=== PATIENT | female | born 1945 | race African-American/Black ===

== ENCOUNTER 2018-09-13 16:43 | Emergency (ER) | payer BC ==
[~2018-09-13] VITALS: Ht 170.2 cm; Wt 86.0 kg
[2018-09-13] MEDS ORDERED: KETOROLAC 60MG/2ML VIAL IM ONE (18:00)
[2018-09-13] MEDS ORDERED: ACETAMINOPHEN WITH CODEINE 300/30MG TABLET PO STA (21:53)
[2018-09-13 21:58] VITALS: BP 144/70
== END 2018-09-13 21:47 | disposition home or self-care (01) ==
LOC: ER 16:43
DX: M25.552 Pain in left hip (principal); M54.5 Low back pain; M19.90 Unspecified osteoarthritis, unspecified site
CPT/HCPCS: 72100; 73502; 96372; 99283; J1885

== ENCOUNTER 2018-11-03 12:25 | Inpatient (IN) | payer BC ==
[~2018-11-03] VITALS: Ht 167.6 cm; Wt 86.6 kg
[2018-11-03 14:00] LABS: HEMATOCRIT. 32.4 % (36.0-48.0); HEMOGLOBIN. 10.9 g/dL (12.0-16.0); MEAN CORPUSCULAR HEMOGLOBIN 28.3 pg (28.0-32.0); MEAN CORPUSCULAR VOLUME 83.9 fL (81.0-99.0); MEAN PLATELET VOLUME 8.9 fl (7.4-10.4); PLATELET 371 x1000/uL (130-400); RED BLOOD CELL COUNT 3.86 mill/uL (4.2-5.4); RED CELL DISTRIBUTION WIDTH 17.2 % (11.6-14.6)
[2018-11-03 14:04] LABS: CHLORIDE 99 mEq/L (98-107)
[2018-11-03 14:07] LABS: INR 1.2; PARTIAL THROMBOPLASTIN TIME 31.3 sec (23.4-31.0); PROTHROMBIN TIME 11.6 sec (9.1-11.1)
[2018-11-03] MEDS ORDERED: KCL 20MEQ/100ML PREMIX 100 ML IV ONE (14:30)
[2018-11-03 15:21] LABS: PLATELET ESTIMATE NORMAL
[2018-11-03] MEDS ORDERED: VANCOMYCIN 1 G PREMIX 200 ML IV SCH (18:30)
[2018-11-03] MEDS ORDERED: PIPERACILLIN/TAZ 3.375G PREMIX 50 ML IV ONE (18:30)
[2018-11-03] MEDS ORDERED: ASPIRIN 325MG EC TABLET PO ONE (19:15)
[2018-11-04] VITALS (10 sets, daily range): BP systolic 103–127; BP diastolic 55–71
[2018-11-04] MEDS ORDERED: KCL 20MEQ/100ML PREMIX 100 ML IV ONE (01:15)
[2018-11-04] MEDS ORDERED: CEFEPIME HCL 1000MG/VIAL INJ IM SCH (02:30)
[2018-11-04] MEDS ORDERED: VANCOMYCIN 1 G PREMIX 200 ML IV SCH (03:00)
[2018-11-04] MEDS ORDERED: HEPARIN 5000 UNITS/ML VIAL SUBCUT SCH (03:00)
[2018-11-04] MEDS ORDERED: CEFEPIME HCL 1000MG/VIAL INJ IV SCH (03:45)
[2018-11-04] MEDS: DEXT 5%/0.45% NACL KCL 40MEQ/L 1,000 ML IV SCH (03:50)
[2018-11-04] MEDS ORDERED: CEFEPIME 1,000 MG in DEXTROSE 5% WATER 50 ML IV SCH (04:00)
[2018-11-04] MEDS ORDERED: POTASSIUM CHLORIDE INJ 60 MEQ in DEXT 5% WATER 500 ML IV SCH (04:00)
[2018-11-04] MEDS ORDERED: ENOXAPARIN 40MG/0.4ML SYR SUBCUT SCH (09:00)
[2018-11-04] MEDS ORDERED: ASPIRIN 81MG EC TABLET PO SCH (09:00)
[2018-11-04] MEDS: PANTOPRAZOLE SODIUM 40 MG/VIAL IV SCH (09:28)
[2018-11-04 13:45] LABS: CHLORIDE 103 mEq/L (98-107)
[2018-11-04] MEDS ORDERED: MORPHINE SULFATE 4 MG/ML CPJ (NOT FOR IM USE) IV PRN (14:45)
[2018-11-04] MEDS ORDERED: POTASSIUM CHLORIDE 20MEQ TABLET SR PO NR ×2 (14:45→17:00)
[2018-11-04 16:33] LABS: HEMATOCRIT. 28.4 % (36.0-48.0); HEMOGLOBIN. 9.2 g/dL (12.0-16.0); MEAN CORPUSCULAR HEMOGLOBIN 27.2 pg (28.0-32.0); MEAN CORPUSCULAR VOLUME 83.9 fL (81.0-99.0); PLATELET 297 x1000/uL (130-400); RED BLOOD CELL COUNT 3.38 mill/uL (4.2-5.4); RED CELL DISTRIBUTION WIDTH 17.3 % (11.6-14.6)
[2018-11-04 16:50] LABS: PLATELET ESTIMATE NORMAL
[2018-11-04] MEDS ORDERED: POTASSIUM CHLORIDE INJ 40 MEQ in DEXT 5% WATER 500 ML IV NR (17:00)
[2018-11-04 17:45] LABS: HEPATITIS A AB IGM NEGATIVE (NEGATIVE)
[2018-11-05] VITALS (8 sets, daily range): BP systolic 136–152; BP diastolic 74–97
[2018-11-05 00:03] LABS: CHLORIDE 106 mEq/L (98-107)
[2018-11-05] MEDS ORDERED: POTASSIUM CHLORIDE INJ 40 MEQ in DEXT 5% WATER 250 ML IV SCH (08:30)
[2018-11-05 09:13] LABS: CHLORIDE 106 mEq/L (98-107)
[2018-11-05] MEDS: PANTOPRAZOLE SODIUM 40 MG/VIAL IV SCH (09:43)
[2018-11-05] MEDS ORDERED: POTASSIUM CHLORIDE 20MEQ TABLET SR PO NR (10:45)
[2018-11-05 11:17] LABS: HEMATOCRIT. 28.3 % (36.0-48.0); HEMOGLOBIN. 9.8 g/dL (12.0-16.0); MEAN CORPUSCULAR HEMOGLOBIN 28.6 pg (28.0-32.0); MEAN CORPUSCULAR VOLUME 83.1 fL (81.0-99.0); MEAN PLATELET VOLUME 9.5 fl (7.4-10.4); PLATELET 322 x1000/uL (130-400); RED BLOOD CELL COUNT 3.41 mill/uL (4.2-5.4); RED CELL DISTRIBUTION WIDTH 17.4 % (11.6-14.6)
[2018-11-05 11:42] LABS: PLATELET ESTIMATE NORMAL
[2018-11-05] MEDS ORDERED: PIPERACILLIN/TAZ 3.375G PREMIX 50 ML IV SCH (12:30)
[2018-11-05] MEDS ORDERED: VANCOMYCIN 750 MG PREMIX 150 ML IV SCH (13:00)
[2018-11-05] MEDS ORDERED: POTASSIUM CHLORIDE INJ 40 MEQ in DEXT 5% WATER 250 ML IV NR ×2 (15:00→19:00)
[2018-11-05 15:30] LABS: CHLORIDE 109 mEq/L (98-107)
[2018-11-05] MEDS: DEXT 5%/0.45% NACL KCL 40MEQ/L 1,000 ML IV SCH (15:38)
[2018-11-05 18:07] LABS: HEPATITIS B SURFACE ANTIGEN NEGATIVE
[2018-11-05] MEDS: CEFAZOLIN 2,000 MG in DEXT 5% WATER 100 ML IV SCH (18:57)
[2018-11-06] VITALS (13 sets, daily range): BP systolic 114–162; BP diastolic 58–87
[2018-11-06] MEDS: CEFAZOLIN 2,000 MG in DEXT 5% WATER 100 ML IV SCH ×3 (01:32→17:05)
[2018-11-06] MEDS ORDERED: POTASSIUM CHLORIDE INJ 40 MEQ in DEXT 5% WATER 250 ML IV NR ×2 (03:00→12:30)
[2018-11-06] MEDS: PANTOPRAZOLE SODIUM 40 MG/VIAL IV SCH (08:25)
[2018-11-06 09:23] LABS: HEMATOCRIT 29.3 % (36.0-48.0); HEMOGLOBIN 9.6 g/dL (12.0-16.0); MEAN CORPUSCULAR HEMOGLOBIN 27.4 pg (28.0-32.0); MEAN CORPUSCULAR VOLUME 84.1 fL (81.0-99.0); PLATELET 327 x1000/uL (130-400); RED BLOOD CELL COUNT 3.48 mill/uL (4.2-5.4); RED CELL DISTRIBUTION WIDTH 18.1 % (11.6-14.6)
[2018-11-06 09:24] LABS: PROTHROMBIN TIME 10.5 sec (9.1-11.1)
[2018-11-06] MEDS ORDERED: KCL 20MEQ/100ML PREMIX 100 ML IV ONE (10:45)
[2018-11-06] MEDS ORDERED: POTASSIUM CHLORIDE INJ 40 MEQ in DEXTROSE 5% WATER 1,000 ML IV SCH (14:00)
[2018-11-06] MEDS ORDERED: DEXT 5% WATER + KCL 40MEQ/L 1,000 ML IV SCH (15:00)
[2018-11-06] MEDS: POTASSIUM CHLORIDE 20MEQ TABLET SR PO NR ×3 (18:30→19:42)
[2018-11-06] MEDS: ONDANSETRON HCL 4MG/2ML INJ IV PRN (19:42)
[2018-11-07] VITALS (50 sets, daily range): BP systolic 91–143; BP diastolic 40–80
[2018-11-07] MEDS: CEFAZOLIN 2,000 MG in DEXT 5% WATER 100 ML IV SCH ×3 (00:55→20:10)
[2018-11-07] MEDS ORDERED: POTASSIUM CHLORIDE INJ 40 MEQ in DEXT 5% WATER 250 ML IV NR ×2 (02:00→18:00)
[2018-11-07] MEDS ORDERED: THROMBIN (BOVINE) 5000 UNITS/VIAL TOP ONE ×2 (06:29→09:37)
[2018-11-07] MEDS ORDERED: GELATIN SPONGE,ABSORBABLE 12-7MM SPONGE ONE ×3 (06:29→09:35)
[2018-11-07] MEDS ORDERED: LIDOCAINE HCL/EPINEPHRINE 1%-EPI 1:100,000 20 ML VIAL ONE (06:30)
[2018-11-07] MEDS ORDERED: BACITRACIN 50,000 UNITS/VIAL ONE (06:30)
[2018-11-07 06:33] LABS: BASOPHILS % 0.6 % (0.0-2.0); EOSINOPHILS % 8.9 % (0.0-5.0); HEMATOCRIT. 27.1 % (36.0-48.0); HEMOGLOBIN. 8.9 g/dL (12.0-16.0); LYMPHOCYTES % 22.5 % (20.0-50.0); MEAN CORPUSCULAR HEMOGLOBIN 27.6 pg (28.0-32.0); MEAN CORPUSCULAR VOLUME 83.5 fL (81.0-99.0); MEAN PLATELET VOLUME 9.7 fl (7.4-10.4); PLATELET 266 x1000/uL (130-400); RED BLOOD CELL COUNT 3.24 mill/uL (4.2-5.4); RED CELL DISTRIBUTION WIDTH 18.2 % (11.6-14.6)
[2018-11-07] MEDS ORDERED: PROPOFOL 200MG/20ML VIAL IV ONE (06:56)
[2018-11-07] MEDS ORDERED: NEOSTIGMINE METHYLSULFATE 1MG/ML 10 ML VIAL ONE (06:56)
[2018-11-07] MEDS ORDERED: FENTANYL CITRATE/PF 50MCG/ML 2ML VIAL ONE (06:56)
[2018-11-07] MEDS ORDERED: ROCURONIUM BROMIDE 10MG/ML VIAL 5ML IV ONE ×2 (06:56→08:11)
[2018-11-07] MEDS ORDERED: CEFAZOLIN SODIUM 1000MG/VIAL ONE (06:57)
[2018-11-07] MEDS ORDERED: GLYCOPYRROLATE 0.2 MG/ML 2ML VIAL ONE (06:57)
[2018-11-07] MEDS ORDERED: LIDOCAINE HCL 1% 20ML VIAL (Pyxis) INJ ONE (07:00)
[2018-11-07] MEDS ORDERED: SODIUM CHLORIDE 0.9% 10ML VIAL ONE ×2 (07:10→07:26)
[2018-11-07] MEDS ORDERED: MORPHINE SULFATE 4 MG/ML CPJ (NOT FOR IM USE) IV PRN (07:15)
[2018-11-07] MEDS ORDERED: HYDROCODONE/APAP 7.5/325MG 1 TAB TABLET PO PRN (07:15)
[2018-11-07] MEDS ORDERED: NICARDIPINE 100 MG in SODIUM CHLORIDE 0.9% 60 ML IV PRN (08:00)
[2018-11-07] MEDS ORDERED: ONDANSETRON HCL 4MG/2ML INJ ONE (09:39)
[2018-11-07] MEDS: DEXT 5%/LACTATED RINGERS 1,000 ML IV SCH ×2 (11:33→20:09)
[2018-11-07] MEDS ORDERED: NALOXONE INJ IV PRN (12:15)
[2018-11-07] MEDS ORDERED: ONDANSETRON INJ IV PRN (12:15)
[2018-11-07] MEDS ORDERED: DIPHENHYDRAMINE INJ IV PRN (12:15)
[2018-11-07] MEDS: HYDROMORPHONE PCA 10MG/50ML IV PRN (12:22)
[2018-11-07] MEDS: PANTOPRAZOLE SODIUM 40 MG/VIAL IV SCH (12:30)
[2018-11-08] VITALS (35 sets, daily range): BP systolic 87–132; BP diastolic 45–68
[2018-11-08] MEDS: ONDANSETRON HCL 4MG/2ML INJ IV PRN ×2 (02:35→08:31)
[2018-11-08] MEDS: DEXT 5%/LACTATED RINGERS 1,000 ML IV SCH ×3 (05:07→22:35)
[2018-11-08 05:41] LABS: BASOPHILS % 0.4 % (0.0-2.0); EOSINOPHILS % 8.1 % (0.0-5.0); HEMATOCRIT. 27.1 % (36.0-48.0); HEMOGLOBIN. 9.3 g/dL (12.0-16.0); LYMPHOCYTES % 16.8 % (20.0-50.0); MEAN CORPUSCULAR HEMOGLOBIN 29.3 pg (28.0-32.0); MEAN CORPUSCULAR VOLUME 85.8 fL (81.0-99.0); NEUTROPHILS % 63.7 % (40.0-76.0); PLATELET 201 x1000/uL (130-400); RED BLOOD CELL COUNT 3.16 mill/uL (4.2-5.4); RED CELL DISTRIBUTION WIDTH 16.9 % (11.6-14.6)
[2018-11-08 05:51] LABS: CHLORIDE 112 mEq/L (98-107)
[2018-11-08] MEDS: CEFAZOLIN 2,000 MG in DEXT 5% WATER 100 ML IV SCH ×2 (08:31→21:05)
[2018-11-08] MEDS: PANTOPRAZOLE SODIUM 40 MG/VIAL IV SCH (08:31)
[2018-11-08] MEDS ORDERED: POTASSIUM CHLORIDE 20MEQ/PACKET PO SCH (18:15)
[2018-11-09] VITALS (45 sets, daily range): BP systolic 95–180; BP diastolic 45–130
[2018-11-09] MEDS: HYDROMORPHONE PCA 10MG/50ML IV PRN (06:01)
[2018-11-09] MEDS: CEFAZOLIN 2,000 MG in DEXT 5% WATER 100 ML IV SCH ×3 (08:50→21:06)
[2018-11-09] MEDS: PANTOPRAZOLE SODIUM 40 MG/VIAL IV SCH (08:50)
[2018-11-09] MEDS: DEXT 5%/LACTATED RINGERS 1,000 ML IV SCH ×2 (08:50→22:12)
[2018-11-09 09:38] LABS: BASOPHILS % 0.4 % (0.0-2.0); EOSINOPHILS % 6.6 % (0.0-5.0); HEMATOCRIT. 26.9 % (36.0-48.0); HEMOGLOBIN. 9.1 g/dL (12.0-16.0); LYMPHOCYTES % 20.6 % (20.0-50.0); MEAN CORPUSCULAR HEMOGLOBIN 29.2 pg (28.0-32.0); MEAN CORPUSCULAR VOLUME 86.3 fL (81.0-99.0); MEAN PLATELET VOLUME 9.5 fl (7.4-10.4); MONOCYTES % 10.6 % (2.0-8.0); NEUTROPHILS % 61.8 % (40.0-76.0); PLATELET 181 x1000/uL (130-400); RED BLOOD CELL COUNT 3.11 mill/uL (4.2-5.4); RED CELL DISTRIBUTION WIDTH 17.6 % (11.6-14.6)
[2018-11-09 09:44] LABS: CHLORIDE 109 mEq/L (98-107)
[2018-11-09] MEDS ORDERED: POTASSIUM CHLORIDE 20MEQ TABLET SR PO SCH (10:30)
[2018-11-09] MEDS ORDERED: ACETAMINOPHEN 325MG TABLET PO PRN (10:30)
[2018-11-09] MEDS ORDERED: POTASSIUM CHLORIDE INJ 80 MEQ in DEXT 5% WATER 500 ML IV SCH (11:30)
[2018-11-09] MEDS: POTASSIUM CHLORIDE 20MEQ TABLET SR PO SCH (17:00)
[2018-11-10] VITALS (31 sets, daily range): BP systolic 88–136; BP diastolic 47–83
[2018-11-10] MEDS: HYDROMORPHONE PCA 10MG/50ML IV PRN (02:21)
[2018-11-10] MEDS: ONDANSETRON HCL 4MG/2ML INJ IV PRN (02:55)
[2018-11-10] MEDS: CEFAZOLIN 2,000 MG in DEXT 5% WATER 100 ML IV SCH ×3 (05:07→22:33)
[2018-11-10 09:40] LABS: BASOPHILS % 0.4 % (0.0-2.0); EOSINOPHILS % 5.9 % (0.0-5.0); HEMOGLOBIN. 9.7 g/dL (12.0-16.0); LYMPHOCYTES % 13.5 % (20.0-50.0); MEAN CORPUSCULAR HEMOGLOBIN 29.5 pg (28.0-32.0); MEAN PLATELET VOLUME 9.8 fl (7.4-10.4); MONOCYTES % 11.6 % (2.0-8.0); NEUTROPHILS % 68.6 % (40.0-76.0); PLATELET 203 x1000/uL (130-400); RED BLOOD CELL COUNT 3.29 mill/uL (4.2-5.4); RED CELL DISTRIBUTION WIDTH 17.8 % (11.6-14.6)
[2018-11-10] MEDS: POTASSIUM CHLORIDE 20MEQ TABLET SR PO SCH ×2 (10:19→17:32)
[2018-11-10] MEDS: PANTOPRAZOLE SODIUM 40 MG/VIAL IV SCH (10:19)
[2018-11-10] MEDS ORDERED: MORPHINE SULFATE 4 MG/ML CPJ (NOT FOR IM USE) IV PRN (12:45)
[2018-11-11] VITALS: BP 95/55
[2018-11-11] MEDS: HYDROCODONE/APAP 7.5/325MG 1 TAB TABLET PO PRN ×3 (00:51→16:46)
[2018-11-11 04:00] VITALS: BP 95/51
[2018-11-11] MEDS: CEFAZOLIN 2,000 MG in DEXT 5% WATER 100 ML IV SCH ×3 (06:54→21:38)
[2018-11-11 07:00] LABS: CHLORIDE 111 mEq/L (98-107)
[2018-11-11 07:26] LABS: BASOPHILS % 0.8 % (0.0-2.0); EOSINOPHILS % 8.4 % (0.0-5.0); HEMATOCRIT. 24.5 % (36.0-48.0); HEMOGLOBIN. 8.1 g/dL (12.0-16.0); LYMPHOCYTES % 20.1 % (20.0-50.0); MEAN CORPUSCULAR VOLUME 87.7 fL (81.0-99.0); MEAN PLATELET VOLUME 9.8 fl (7.4-10.4); MONOCYTES % 8.9 % (2.0-8.0); NEUTROPHILS % 61.8 % (40.0-76.0); PLATELET 225 x1000/uL (130-400); RED BLOOD CELL COUNT 2.79 mill/uL (4.2-5.4); RED CELL DISTRIBUTION WIDTH 18.3 % (11.6-14.6)
[2018-11-11 08:00] VITALS: BP 113/52
[2018-11-11] MEDS: POTASSIUM CHLORIDE 20MEQ TABLET SR PO SCH ×2 (08:30→16:45)
[2018-11-11] MEDS: PANTOPRAZOLE SODIUM 40 MG/VIAL IV SCH (08:30)
[2018-11-11 12:00] VITALS: BP 119/57
[2018-11-11 16:00] VITALS: BP 106/55
[2018-11-11 20:00] VITALS: BP 94/44
[2018-11-12] VITALS: BP 124/64
[2018-11-12] MEDS: HYDROCODONE/APAP 7.5/325MG 1 TAB TABLET PO PRN ×2 (01:54→14:13)
[2018-11-12 04:00] VITALS: BP 107/56
[2018-11-12] MEDS: CEFAZOLIN 2,000 MG in DEXT 5% WATER 100 ML IV SCH ×2 (07:37→14:40)
[2018-11-12 08:00] VITALS: BP 132/64
[2018-11-12 08:17] LABS: BASOPHILS % 0.9 % (0.0-2.0); EOSINOPHILS % 7.6 % (0.0-5.0); HEMATOCRIT. 25.9 % (36.0-48.0); HEMOGLOBIN. 8.8 g/dL (12.0-16.0); LYMPHOCYTES % 22.9 % (20.0-50.0); MEAN CORPUSCULAR HEMOGLOBIN 29.7 pg (28.0-32.0); MEAN CORPUSCULAR VOLUME 87.4 fL (81.0-99.0); MEAN PLATELET VOLUME 9.5 fl (7.4-10.4); MONOCYTES % 8.3 % (2.0-8.0); NEUTROPHILS % 60.3 % (40.0-76.0); PLATELET 261 x1000/uL (130-400); RED BLOOD CELL COUNT 2.96 mill/uL (4.2-5.4); RED CELL DISTRIBUTION WIDTH 18.6 % (11.6-14.6)
[2018-11-12] MEDS: PANTOPRAZOLE SODIUM 40 MG/VIAL IV SCH (08:25)
[2018-11-12] MEDS: POTASSIUM CHLORIDE 20MEQ TABLET SR PO SCH (08:26)
[2018-11-12 08:43] LABS: CHLORIDE 106 mEq/L (98-107)
[2018-11-12] MEDS ORDERED: POTASSIUM CHLORIDE 20MEQ TABLET SR PO SCH ×2 (14:30→17:00)
[2018-11-12 18:20] VITALS: BP 102/53
[2018-11-12 20:00] VITALS: BP 144/69
== END 2018-11-12 22:40 | DRG 853 ==
LOC: ER 12:25 → EDBEDREQSVC 17:07 → EDBEDREQ 17:07 → 5EST 19:02 → EDBEDREQ 19:09 → ENRESERV 22:06 → MICUSO 11-07 08:36 → 8WST 11-10 21:13
PROVIDERS: ADMIT Internal Medicine; ATTEND Internal Medicine
PROC: 00160J6 Bypass Cerebral Ventricle to Peritoneal Cavity with Synthetic Substitute, Open Approach (ICD-10-PCS; 2018-11-05)
PROC: 009U0ZZ Drainage of Spinal Canal, Open Approach (ICD-10-PCS; principal; 2018-11-07)
PROC: 00NY0ZZ Release Lumbar Spinal Cord, Open Approach (ICD-10-PCS; 2018-11-07)
PROC: 30233N1 Transfusion of Nonautologous Red Blood Cells into Peripheral Vein, Percutaneous Approach (ICD-10-PCS; 2018-11-07)
DX: A41.01 Sepsis due to Methicillin susceptible Staphylococcus aureus (principal); I50.33 Acute on chronic diastolic (congestive) heart failure; G06.1 Intraspinal abscess and granuloma; E43 Unspecified severe protein-calorie malnutrition; K83.1 Obstruction of bile duct; G81.91 Hemiplegia, unspecified affecting right dominant side; E87.0 Hyperosmolality and hypernatremia; N17.9 Acute kidney failure, unspecified; M46.26 Osteomyelitis of vertebra, lumbar region; G91.2 (Idiopathic) normal pressure hydrocephalus; G82.20 Paraplegia, unspecified; G91.9 Hydrocephalus, unspecified; G93.40 Encephalopathy, unspecified; G99.2 Myelopathy in diseases classified elsewhere; M48.02 Spinal stenosis, cervical region; E87.6 Hypokalemia; E78.5 Hyperlipidemia, unspecified; M48.061 Spinal stenosis, lumbar region without neurogenic claudication; D64.9 Anemia, unspecified; M54.16 Radiculopathy, lumbar region; H70.91 Unspecified mastoiditis, right ear; I11.0 Hypertensive heart disease with heart failure; I25.10 Atherosclerotic heart disease of native coronary artery without angina pectoris; M25.78 Osteophyte, vertebrae; M47.896 Other spondylosis, lumbar region; M51.26 Other intervertebral disc displacement, lumbar region; M19.90 Unspecified osteoarthritis, unspecified site; Z86.61 Personal history of infections of the central nervous system; I25.2 Old myocardial infarction; Z68.30 Body mass index [BMI] 30.0-30.9, adult
CPT/HCPCS: 36415; 70544; 70553; 71045; 72100; 72141; 72142; 72148; 72157; 76000; 76705; 80048; 80076; 82570; 83735; 83880; 84132; 84133; 84484; 85027; 85651; 86141; 86705; 86709; 86803; 86850; 86900; 86920; 87070; 87075; 87340; 88305; 88311; 93005; 93306; 93970; 95863; 95925; 95926; 95928; 95929; 96365; 97116; 97163; 97166; 97530; 97535; 99291; C9113; J0690; J0692; J1170; J1650; J2270; J2405; J2543; J2704; J2710; J3010; J3370; J3480; J3490; J7040; J7050; J7060; J7070; J7121; L3908; P9016; A4315

== ENCOUNTER 2022-08-19 08:51 | Emergency (ER) | payer BC ==
[~2022-08-19] VITALS: Ht 167.6 cm; Wt 75.0 kg
[2022-08-19 14:02] LABS: BASOPHILS % 0.6 % (0.0-2.0); EOSINOPHILS % 1.9 % (0.0-5.0); HEMATOCRIT. 41.3 % (36.0-48.0); HEMOGLOBIN. 13.3 g/dL (12.0-16.0); LYMPHOCYTES % 26.7 % (20.0-50.0); MEAN CORPUSCULAR HEMOGLOBIN 28.8 pg (28.0-32.0); MEAN CORPUSCULAR VOLUME 89.6 fL (81.0-99.0); MEAN PLATELET VOLUME 10.3 fl (7.4-10.4); MONOCYTES % 5.9 % (2.0-8.0); NEUTROPHILS % 64.9 % (40.0-76.0); PLATELET 149 x1000/uL (130-400); RED BLOOD CELL COUNT 4.61 mill/uL (4.2-5.4); RED CELL DISTRIBUTION WIDTH 14.9 % (11.6-14.6)
[2022-08-19 14:09] LABS: CHLORIDE 107 mEq/L (98-107)
[2022-08-19] MEDS ORDERED: ASPIRIN 325MG TABLET PO ONE (15:30)
[2022-08-19 15:38] LABS: D-DIMER 0.99 mg/L FEU (<0.50); PARTIAL THROMBOPLASTIN TIME 27.3 sec (23.4-31.0); PROTHROMBIN TIME 10.5 sec (9.6-11.0)
[2022-08-19 18:02] VITALS: BP 139/60
[2022-08-19] MEDS ORDERED: IOHEXOL-350 100 ML BOTTLE ONE (19:12)
== END 2022-08-19 18:08 | disposition home or self-care (01) ==
LOC: ER 08:51
DX: R07.89 Other chest pain (principal); E78.00 Pure hypercholesterolemia, unspecified; I10 Essential (primary) hypertension
CPT/HCPCS: 36415; 71045; 71275; 80053; 83880; 84484; 85025; 85379; 85610; 85730; 93005; 93970; 99285; Q9967